=== PATIENT | female | born 1990 | race Caucasian/White ===

== ENCOUNTER 2016-06-28 12:06 | Emergency (ER) | payer OTHER ==
[~2016-06-28] VITALS: Ht 175.3 cm; Wt 89.3 kg
[~2016-06-28 12:06] MED LIST: MACROBID100 MG PO
[2016-06-28 13:21] LABS: INFLUENZA A VIRAL ANTIGEN NEGATIVE; INFLUENZA B VIRAL ANTIGEN NEGATIVE
[2016-06-28] MEDS ORDERED: NAPROXEN500 MG PO (13:56)
[2016-06-28 14:36] VITALS: BP 113/69
== END 2016-06-28 14:43 | disposition home or self-care (01) ==
LOC: EME 12:06 → RME 12:06
DX: J02.0 Streptococcal pharyngitis (principal)
CPT/HCPCS: 87502; 87651 90; 99281; 99284; J0561; J1100

== ENCOUNTER 2016-11-11 18:03 | Emergency (ER) | payer OTHER ==
[~2016-11-11] VITALS: Ht 172.7 cm; Wt 84.7 kg
[~2016-11-11 18:03] MED LIST changes: +NAPROXEN500 MG PO
[2016-11-11] MEDS ORDERED: BACTRIM,SEPT1 TABLET PO (22:48)
[2016-11-11 23:15] VITALS: BP 115/70
== END 2016-11-11 23:16 | disposition home or self-care (01) ==
LOC: RME 18:03 → EME 18:03 → RME 23:16
DX: L03.90 Cellulitis, unspecified (principal)
CPT/HCPCS: 99281; 99284